=== PATIENT | male | born 1960 | race Caucasian/White ===

== ENCOUNTER 2017-11-30 11:10 | Emergency (ER) | payer OTHER ==
[~2017-11-30] VITALS: Ht 188 cm; Wt 102.1 kg
[~2017-11-30 11:10] MED LIST: ACET325 PO; Flomax0.4 MG PO; HYDMOR4 PO; HYDROCODONE/ACETAMIN; IBUP800 PO; LEVFLO500 PO; LEVO750 PO; LISI20 PO; METO50ER PO; Norco 10-325 T1 EACH PO; OMEPRAZOLE PO; OXYACE5T PO; OXYC10ER PO; SACC250C PO; TAMS.4ER PO; Zofran Odt4 MG SL
[2017-11-30] MEDS ORDERED: PANT40 PO (13:02)
[2017-11-30] MEDS ORDERED: ASPI81CH PO (13:02)
[2017-11-30] MEDS ORDERED: LEVE500 PO (13:03)
[2017-11-30] MEDS ORDERED: FERSU90EL (13:03)
[2017-11-30] MEDS ORDERED: CARV25 PO (13:03)
[2017-11-30] MEDS ORDERED: AMLO5 (13:04)
[2017-11-30] MEDS ORDERED: LOSA25 (13:04)
[2017-11-30 13:59] LABS: BASOPHILS ABSOLUTE AUTO 0.05 K/mm3 (0.00-0.23); BASOPHILS PERCENT AUTO 1 % (0-2); EOSINOPHILS ABSOLUTE AUTO 0.15 K/mm3 (0.00-0.68); EOSINOPHILS PERCENT AUTO 2 % (0-6); Hematocrit 41.8 % (37.0-53.0); Hemoglobin 13.3 g/dL (13.5-17.5); IMMATURE GRAN ABSOLUTE AUTO 0.01 K/mm3 (0.00-0.10); IMMATURE GRAN PERCENT AUTO 0 % (0-1); LYMPHOCYTES ABSOLUTE AUTO 1.85 K/mm3 (0.84-5.20); LYMPHOCYTES PERCENT AUTO 25 % (21-46); MONOCYTES ABSOLUTE AUTO 0.58 K/mm3 (0.16-1.47); MONOCYTES PERCENT AUTO 8 % (4-13); Mean Corpuscular HGB Conc 31.8 g/dL (31.5-36.5); Mean Corpuscular Volume 85 fL (80-100); Mean Platelet Volume 11.5 fL (9.1-12.4); NEUTROPHILS PERCENT AUTO 65 % (41-73); Platelet Count 242 K/mm3 (150-400); RDW Coefficient Variation 17.8 % (11.7-14.2); RDW Standard Deviation 55.8 fL (35.1-46.3); Red Blood Cell Count 4.92 M/mm3 (4.30-5.90); White Blood Cell Count 7.54 K/mm3 (4.00-11.30)
[2017-11-30 14:08] LABS: Albumin, Blood 3.7 g/dL (3.4-5.0); Albumin/Globulin Ratio 0.8 (0.8-1.8); Bilirubin, Total 0.3 mg/dL (0.1-1.0); Bun/Creatinine Ratio 13.2 (12.0-20.0); Calcium, Blood 9.1 mg/dL (8.5-10.1); Creatinine, Blood 1.36 mg/dL (0.60-1.20); Globulin, Blood 4.7 g/dL (2.2-4.0); Total Protein, Blood 8.4 g/dL (6.4-8.2)
== END 2017-11-30 15:43 | disposition home or self-care (01) ==
LOC: ER 11:10
PROVIDERS: Physician Assistant
DX: R51 Headache (principal); H53.8 Other visual disturbances; Z91.041 Radiographic dye allergy status; Z88.8 Allergy status to other drugs, medicaments and biological substances; Z79.899 Other long term (current) drug therapy; Z79.82 Long term (current) use of aspirin; Z86.73 Personal history of transient ischemic attack (TIA), and cerebral infarction without residual deficits
CPT/HCPCS: 36415; 70450; 80053; 85025; 85651; 86141; 96361; 96374; 96375; 96376; 99284-25; J0780; J1200; J1885; J7030

== ENCOUNTER → 2018-04-24 | Outpatient (CLI) | payer OTHER ==
[~2018-04-24] MED LIST changes: +AMLO5 PO; +ASPI81CH PO; +CARV25 PO; +ESCI10 PO; +FERSU90EL; +LEVE500 PO; +LOSA25 PO; +PANT40 PO
== END | disposition home or self-care (01) ==
LOC: PLD 08:09 → LAB SHORT 08:09
DX: L60.2 Onychogryphosis (principal); B35.1 Tinea unguium
CPT/HCPCS: 88305; 88312

== ENCOUNTER 2018-05-23 13:04 | Day surgery (SDC) | payer OTHER ==
[~2018-05-23] VITALS: Ht 188 cm; Wt 111.1 kg
[~2018-05-23 13:04] MED LIST changes: +ELIQUIS5 MG PO
--- NOTE | 2018-05-23 15:56 | NUR ---
05/23/18 1556 Fito Goldman USED 04/23 CC OF NS INJECTED INTO POLYP
== END 2018-05-23 15:59 | disposition home or self-care (01) ==
LOC: ORSCSDS 13:04
PROVIDERS: Student in an Organized Health Care Education/Training Program
PROC: 0DBK8ZX Excision of Ascending Colon, Via Natural or Artificial Opening Endoscopic, Diagnostic (ICD-10-PCS; principal; 2018-05-23 14:15)
PROC: 3E0H8GC Introduction of Other Therapeutic Substance into Lower GI, Via Natural or Artificial Opening Endoscopic (ICD-10-PCS; principal; 2018-05-23 14:15)
DX: D50.9 Iron deficiency anemia, unspecified (principal); D12.2 Benign neoplasm of ascending colon; K63.5 Polyp of colon; K57.30 Diverticulosis of large intestine without perforation or abscess without bleeding; R19.5 Other fecal abnormalities; Z83.71 Family history of colonic polyps; Z86.010 Personal history of colon polyps; G47.33 Obstructive sleep apnea (adult) (pediatric); I48.91 Unspecified atrial fibrillation; I69.351 Hemiplegia and hemiparesis following cerebral infarction affecting right dominant side; F32.9 Major depressive disorder, single episode, unspecified; E78.5 Hyperlipidemia, unspecified; Z79.01 Long term (current) use of anticoagulants; Z79.899 Other long term (current) drug therapy; Z87.891 Personal history of nicotine dependence
CPT/HCPCS: 88305; J7120

== ENCOUNTER 2018-12-12 12:29 | Day surgery (SDC) | payer OTHER ==
[~2018-12-12] VITALS: Ht 188 cm; Wt 117.2 kg
[~2018-12-12 12:29] MED LIST changes: +TRAZ50 PO
== END 2018-12-12 14:22 | disposition home or self-care (01) ==
LOC: ORSCSDS 12:29
PROVIDERS: Student in an Organized Health Care Education/Training Program
PROC: 0DBL8ZX Excision of Transverse Colon, Via Natural or Artificial Opening Endoscopic, Diagnostic (ICD-10-PCS; principal; 2018-12-12 13:45)
DX: D12.3 Benign neoplasm of transverse colon (principal); Z86.010 Personal history of colon polyps; Z83.71 Family history of colonic polyps; Z12.11 Encounter for screening for malignant neoplasm of colon; G47.33 Obstructive sleep apnea (adult) (pediatric); I48.91 Unspecified atrial fibrillation; I10 Essential (primary) hypertension; E66.9 Obesity, unspecified; Z86.73 Personal history of transient ischemic attack (TIA), and cerebral infarction without residual deficits; R56.9 Unspecified convulsions; Z68.33 Body mass index [BMI] 33.0-33.9, adult; Z79.899 Other long term (current) drug therapy
CPT/HCPCS: 88305; J2704; J7120

== ENCOUNTER 2023-04-20 14:25 | Inpatient (IN) | payer MEDICARE ==
[2023-04-20] VITALS (14 sets, daily range): BP systolic 113–162; BP diastolic 63–111
[~2023-04-20] VITALS: Ht 185.4 cm; Wt 135.1 kg
[2023-04-20] MEDS ORDERED: TAMSULOSIN HCL0.4 M1 PO (14:49)
[2023-04-20 14:59] LABS: BASOPHILS ABSOLUTE AUTO 0.04 K/mm3 (0.00-0.23); BASOPHILS PERCENT AUTO 0 % (0-2); EOSINOPHILS ABSOLUTE AUTO 0.03 K/mm3 (0.00-0.68); EOSINOPHILS PERCENT AUTO 0 % (0-6); Hematocrit 47.4 % (37.0-53.0); IMMATURE GRAN ABSOLUTE AUTO 0.02 K/mm3 (0.00-0.10); IMMATURE GRAN PERCENT AUTO 0 % (0-1); LYMPHOCYTES ABSOLUTE AUTO 1.27 K/mm3 (0.84-5.20); LYMPHOCYTES PERCENT AUTO 13 % (21-46); MONOCYTES ABSOLUTE AUTO 0.34 K/mm3 (0.16-1.47); MONOCYTES PERCENT AUTO 4 % (4-13); Mean Corpuscular HGB 31.9 pg (26.0-34.0); Mean Corpuscular HGB Conc 35.9 g/dL (31.5-36.5); Mean Corpuscular Volume 89 fL (80-100); Mean Platelet Volume 10.6 fL (9.1-12.4); NEUTROPHILS ABSOLUTE AUTO 7.94 K/mm3 (1.96-9.15); NEUTROPHILS PERCENT AUTO 82 % (41-73); Platelet Count 254 K/mm3 (150-400); RDW Coefficient Variation 14.2 % (11.7-14.2); RDW Standard Deviation 45.8 fL (35.1-46.3); Red Blood Cell Count 5.33 M/mm3 (4.30-5.90); White Blood Cell Count 9.64 K/mm3 (4.00-11.30)
[2023-04-20] MEDS ORDERED: NS 1,000 ML IV SCH ×2 (15:15)
[2023-04-20] MEDS ORDERED: Diltiazem HCl 5 MG / ML 5ML Vial IV ONE ×2 (15:15→16:30)
[2023-04-20 15:22] LABS: Albumin/Globulin Ratio 0.9 (0.8-1.8); Bilirubin, Total 0.7 mg/dL (0.1-1.0); Bun/Creatinine Ratio 16.2 (12.0-20.0); Calcium, Blood 9.5 mg/dL (8.5-10.1); Creatinine, Blood 1.11 mg/dL (0.60-1.20); Globulin, Blood 4.5 g/dL (2.2-4.0); Potassium, Blood 3.8 mmol/L (3.5-5.5); Total Protein, Blood 8.5 g/dL (6.4-8.2)
[2023-04-20] MEDS ORDERED: dilTIAZem HCL 125 MG in Dextrose 5% 100 ML IV SCH (16:30)
[2023-04-20] MEDS ORDERED: Nitroglycerin 0.4 MG SUBL SL PRN (17:30)
[2023-04-20] MEDS ORDERED: FLU VACC QS2023-24(6MOS UP)/PF 60 MCG/0.5 ML SYRINGE IM SCH (17:30)
[2023-04-20] MEDS ORDERED: Acetaminophen 325 MG TABLET PO PRN (17:30)
[2023-04-20 17:40] LABS: Influenza A, PCR NEGATIVE (NEGATIVE); Influenza B, PCR NEGATIVE (NEGATIVE); Resp Syncytial Virus, PCR NEGATIVE (NEGATIVE); SARS-Cov-2 (COVID-19) PCR, MMC NEGATIVE (NEGATIVE)
--- NOTE | 2023-04-20 19:03 | NUR ---
ARRIVAL TO PCU/SHIFT SUMMARY patient arrived to pcu at approx 1840. patient is alert and oriented x4. perrla. patient reports no chest pain/pressure or shortness of breath. patient came to pcu on a cardizem drip at 10. tele afib in the 120s. patient oriented to room and unit. vitals taken and are stable. plan of date is up to date at this time.
[2023-04-20 19:28] LABS: Anti-Xa UFH, PHA Monitoring 0.48 IU/mL; Prothrombin Time Results 10.5 Sec (9.7-11.5)
[2023-04-20] MEDS ORDERED: Dose Adjust by Pharmacy XX STA ×2 (19:38→21:22)
[2023-04-20] MEDS ORDERED: Heparin Sodium 5000 Units/ML 1ML MDV IV ONE (19:40)
[2023-04-20] MEDS ORDERED: Heparin Sodium,Porcine/0.5 NS 500 ML IV SCH (19:40)
[2023-04-20] MEDS ORDERED: Apixaban 5 MG Tab PO SCH (21:00)
[2023-04-20] MEDS ORDERED: Atorvastatin 40 MG Tab PO SCH (23:00)
[2023-04-21] VITALS (20 sets, daily range): BP systolic 118–182; BP diastolic 62–105
[2023-04-21 05:00] LABS: BASOPHILS ABSOLUTE AUTO 0.08 K/mm3 (0.00-0.23); BASOPHILS PERCENT AUTO 1 % (0-2); EOSINOPHILS ABSOLUTE AUTO 0.16 K/mm3 (0.00-0.68); EOSINOPHILS PERCENT AUTO 2 % (0-6); Hematocrit 42.9 % (37.0-53.0); IMMATURE GRAN ABSOLUTE AUTO 0.03 K/mm3 (0.00-0.10); IMMATURE GRAN PERCENT AUTO 0 % (0-1); LYMPHOCYTES PERCENT AUTO 38 % (21-46); MONOCYTES ABSOLUTE AUTO 0.97 K/mm3 (0.16-1.47); MONOCYTES PERCENT AUTO 10 % (4-13); Mean Corpuscular HGB 31.8 pg (26.0-34.0); Mean Corpuscular Volume 91 fL (80-100); Mean Platelet Volume 10.4 fL (9.1-12.4); NEUTROPHILS PERCENT AUTO 50 % (41-73); Platelet Count 236 K/mm3 (150-400); RDW Coefficient Variation 14.3 % (11.7-14.2); RDW Standard Deviation 47.2 fL (35.1-46.3); Red Blood Cell Count 4.71 M/mm3 (4.30-5.90); White Blood Cell Count 10.14 K/mm3 (4.00-11.30)
[2023-04-21 05:32] LABS: Magnesium, Blood 2.3 mg/dL (1.6-2.4)
[2023-04-21 05:33] LABS: Alanine Aminotransfer (ALT/SGP 41 U/L (12-78); Albumin, Blood 3.2 g/dL (3.4-5.0); Albumin/Globulin Ratio 0.9 (0.8-1.8); Alk Phos 52 U/L (50-136); Anion Gap 3 mmol/L (6-16); Aspartate Aminotrans (AST/SGOT 61 U/L (12-37); Bilirubin, Total 0.5 mg/dL (0.1-1.0); Blood Urea Nitrogen 17 mg/dL (8-24); Bun/Creatinine Ratio 14.3 (12.0-20.0); CO2, Blood 27 mmol/L (21-32); Calcium, Blood 9.2 mg/dL (8.5-10.1); Chloride, Blood 110 mmol/L (98-108); Cholesterol 215 mg/dL (50-200); Creatinine, Blood 1.19 mg/dL (0.60-1.20); Globulin, Blood 3.7 g/dL (2.2-4.0); Glomerular Filtration Rate 70 (60-); Glucose, Blood 123 mg/dL (70-99); Potassium, Blood 3.4 mmol/L (3.5-5.5); Sodium, Blood 140 mmol/L (136-145); Total Protein, Blood 6.9 g/dL (6.4-8.2); Triglycerides 209 mg/dL (30-160)
[2023-04-21] MEDS ORDERED: Dose Adjust by Pharmacy XX STA ×3 (05:38→21:07)
--- NOTE | 2023-04-21 06:13 | NUR ---
SHIFT SUMMARY PT A&O X4, COOPERATIVE WITH CARE. PT FOLLOWS COMMANDS AND MOVES ALL EXTREMITIES, STRENGTH INTACT AND EQUAL BILAT. PT DENIES CP/PRESSURE, DIZZINESS, LIGHTHEADNESS, PALPITATIONS OR N/V. PT DENIES SOB, HOWEVER THIS RN DOES NOTE MILD DYSPNEA DURING CONVERSATION, AND MORE SEVERE DYSPNEA WITH ACTIVITY. PT CONTINUES TO DENY, SPO2 MAINTAINED >94%. PT REMAINS IN AFIB WITH RATE IN 80 - 90'S AT REST, HR INCREASING TO 100 - 120'S WITH ACTIVITY. CARDIZEM GTT PLACED ON STANDBY AT 0400. HR REMAINS IN 80 - 90'S. HEPARIN GTT PER EMAR. PT AFEBRILE DURING SHIFT, REMAINS ON RA. PT ABLE TO AMBULATE TO RESTROOM WITH NURSE ASSIST/SBA FOR CORD MANAGEMENT AND SAFETY. PT'S GAIT IS STEADY AND PT ASYMPTOMATIC WHEN AMBULATING. NO BM THIS SHIFT, PT DENIES CONCERNS GI/. PT ABLE TO VERBALIZE NEEDS AND USE CALL LIGHT. PT REQUESTING SNACKS FREQUENTLY STATES "IS VERY HUNGRY". PT NPO SINCE 0000. WILL UPDATE ONCOMING RN
[2023-04-21] MEDS ORDERED: Aspirin 81 MG Chew PO SCH (09:00)
[2023-04-21] MEDS ORDERED: Metoprolol Succinate 50 MG TABCR PO SCH (09:00)
[2023-04-21] MEDS ORDERED: Losartan Potassium 25 MG Tab PO SCH (09:00)
[2023-04-21] MEDS ORDERED: Docusate Sodium/Senna 1 Tab PO PRN (10:45)
[2023-04-21] MEDS ORDERED: Sennosides 8.6 MG Tab PO PRN (12:20)
[2023-04-21] MEDS ORDERED: Digoxin 0.25 MG/ML 2ML Amp IV SCH ×2 (13:25→16:00)
--- NOTE | 2023-04-21 18:51 | NUR ---
ASSUMED CARE OF PT AT [address] CATALAN IN TO SEE PT AND STRESS TEST ORDERED. FIRST PART OF STRESS TEST COMPLETED THIS AM, WITH SECOND HALF PLANNED FOR APROX 0930 TOMORROW. PT IS TO BE NPO AFTER MN. PT OOB TO CHAIR MOST OF THE DAY. ABLE TO AMBULATE TO RESTROOM SBA APROX 1330. PT BACK TO CHAIR AND REPORTS CHEST PRESSURE, HR NOTED TO BE 140-150s. THIS RN ALLOWED PT TO SIT IN CHAIR AND TRY TO RELAX, BUT HR AND CHEST PRESSURE CONTINUED. PT WAS RESTARTED ON CARDIZEM GTT FOR RATE CONTROL. PT HAS RECEIVED FIRST DOSE OF IV DIGOXIN, WITH SECOND DOSE SCHEDULED FOR LATER THIS EVENING. CARDIZEM GTT TO CONTINUE UNTIL HR IS CONTROLLED. PT NO LONGER REPORTED CHEST PRESSURE ONCE HR HAD COME DOWN TO 90-100 ON CARDIZEM GTT. SEE DOCUMENTED VS AND ASSESSMENT. NO OTHER ACUTE EVENTS T/O THE DAY. PT HAS REMAINED ON HEPARIN GTT PER MD ORDERS. PT IS ABLE TO COMMUNICATE NEEDS AND USES CALL LIGHT EFFECTIVELY. BED LOCKED AND IN LOWEST POSITION. CALL LIGHT IN REACH AT THIS TIME. WILL CONTINUE TO MONITOR AND GIVE REPORT TO NOC SHIFT RN.
[2023-04-22] VITALS (22 sets, daily range): BP systolic 116–189; BP diastolic 75–119
[2023-04-22] MEDS ORDERED: Metoprolol Tartrate 50 MG Tab PO ONE (01:00)
[2023-04-22 03:27] LABS: Hematocrit 48.2 % (37.0-53.0); Hemoglobin 16.6 g/dL (13.5-17.5); Mean Platelet Volume 10.5 fL (9.1-12.4); Platelet Count 252 K/mm3 (150-400)
[2023-04-22] MEDS ORDERED: Dose Adjust by Pharmacy XX STA ×2 (04:47→11:44)
[2023-04-22] MEDS ORDERED: Digoxin 0.125 MG Tab PO SCH (06:00)
--- NOTE | 2023-04-22 06:42 | NUR ---
SHIFT SUMMARY PT A&O X4, NO ACUTE NEURO CHANGES DURING SHIFT. PT REMAINS IN AFIB WITH RATE IN 70 - 80'S, HR INCREASES TO 100 - 1 TEENS WITH EXERTION OR ACTIVITY. PT AFEBRILE, REMAINS ON RA WITH SPO2 >94%. PT DENIES CP/PRESSURE, DIZZINESS, PALPITATIONS, SOB, N/V. THIS RN DOES NOTE CONTINUED MILD DYSPNEA HOWEVER IS IMPROVING. BLOOD PRESSURES LABILE; RANGING FROM 130 - 180'S. THIS RN NOTIFIED PROVIDER AFTER BLOOD PRESSURES CONTINUE TO TREND UP, ORDERS FOR ONE TIME DOSE OF METOPROLOL TARTRATE 50 MG PO. MEDICATION ADMINISTERED; BLOOD PRESSURES IMPROVING SOME. PT STATES "HE IS ALWAYS HIGH AND THIS HIGH". EDUCATION PROVIDED. PT VERBALIZED UNDERSTANDING OF INFORMATION. HEPARIN INFUSING PER EMAR. KHAN ON STANDBY AT BEDSIDE SINCE 0400. PT RESTED WELL THROUGH THE NIGHT. USES CALL LIGHT APPROPRIATELY. PT NPO SINCE 0000 FOR STRESS TEST THIS AM. WILL UPDATE ONCOMING RN
[2023-04-22] MEDS ORDERED: Caffeine Citrated 60 MG/3 ML Vial ONE (09:17)
[2023-04-22] MEDS ORDERED: Regadenoson 0.4 MG/5 ML SYRINGE ONE (09:17)
[2023-04-22] MEDS ORDERED: HYDROcodone 5-APAP 325 TAB PO PRN (10:35)
[2023-04-22] MEDS ORDERED: Metoprolol Tartrate 1 MG/ML 5 ML VIAL IV ONE (13:55)
--- NOTE | 2023-04-22 18:52 | NUR ---
ASSUMED CARE OF PT AT 0700 THIS AM. PT REPORTS NO CHEST PAIN OR PRESSURE T/O THE DAY. ECHO AND STRESS TEST COMPLETED. HEPARIN GTT CONTINUES TO INFUSE PER MD ORDERS. ROUNDED WITH DR WELDON AND DISCUSSED HR CONTROL, METOPROL DOSAGE INCREASED. PER FILBERT GROWER, PT IS TO BE NPO AFTER MIDNIGHT FOR POSSIBLE PROCEDURE. SEE DOCUMENTED VS AND ASSESSMENT. NO ACUTE EVENTS THIS SHFT. PT IS ABLE TO MAKE NEEDS KNOWN, USES ALL LIGHT APPROPRIATELY. BED LOCKED AND IN LOWEST POSITION, CALL LIGHT IN REACH. WILL CONTINUE TO MONITOR AND GIVE REPORT TO NOC SHIFT RN.
[2023-04-22] MEDS ORDERED: Metoprolol Succinate 50 MG TABCR PO SCH (21:00)
--- NOTE | 2023-04-22 22:17 | NUR ---
ASSUMPTION OF CARE NOTE THIS RN ASSUMED CARE OF PT AT 1900, REPORT FROM MILENA ANGULO. PT A&O X4, COOPERATIVE WITH CARE. VSS; 149/119, AFIB WITH RATE IN 90 - 100'S. HR INCREASING TO 1 TEENS - 120'S WITH ACTIVITY. PT ASYMPTOMATIC, EXCEPT MILD DYSPNEA WHICH IS IMPROVING FROM ADMIT. PT DENIES PAIN, DENIES ISSUES GI/. PT AMBULATING TO RESTROOM INDEPENDENTLY, ONLY NEEDING MINIMAL ASSISTANCE FOR CORD MANAGEMENT. HEPARIN INFUSING PER EMAR. CARDIZEM ON STANDBY AT BEDSIDE. PT DENIES NEEDS, CALL LIGHT IN REACH.
[2023-04-23] VITALS: BP 133/91
[2023-04-23] MEDS ORDERED: Clarify Drug Order XX ONE ×2 (00:40→07:00)
[2023-04-23 04:30] VITALS: BP 161/107
--- NOTE | 2023-04-23 06:09 | NUR ---
SHIFT SUMMARY PT REMAINS A&O X4. VSS; REMAINS IN AFIB WITH RATE IN 80 - 100'S. SBP 130 - 160, DBP 90 - 1 TEENS. AFEBRILE, REMAINS ON RA SPO2 >94%. NO EVENTS OF CP/PRESSURE, DIZZINESS, PALPITATIONS. MILD DYSPNEA NOTED WITH ACTIVITY BUT CONTINUES TO IMPROVE. PT ALSO AGREES IT IS IMPROVING. NO ACUTE CHANGES OVERNIGHT. HEPARIN PER EMAR. PT AMBULATING AND USING RESTROOM INDEPENDENTLY, WITH GOOD OUTPUT. PT DENIES ISSUES OR CONCERNS. PT RESTED VERY WELL THIS SHIFT. CALL LIGHT IN REACH. WILL UPDATE ONCOMING RN
[2023-04-23 06:23] LABS: Hematocrit 46.3 % (37.0-53.0); Hemoglobin 16.2 g/dL (13.5-17.5); Mean Platelet Volume 10.5 fL (9.1-12.4); Platelet Count 245 K/mm3 (150-400)
[2023-04-23 07:48] VITALS: BP 167/95
[2023-04-23] MEDS ORDERED: Labetalol HCL 100 MG TAB PO SCH (09:00)
[2023-04-23] MEDS ORDERED: Losartan Potassium 50 MG Tab PO SCH (09:00)
[2023-04-23 09:01] LABS: Anion Gap 2 mmol/L (6-16); Blood Urea Nitrogen 15 mg/dL (8-24); Bun/Creatinine Ratio 12.4 (12.0-20.0); CHOL/HDL RATIO 4.2; CO2, Blood 29 mmol/L (21-32); Chloride, Blood 108 mmol/L (98-108); Cholesterol 187 mg/dL (50-200); Creatinine, Blood 1.21 mg/dL (0.60-1.20); Glomerular Filtration Rate 68 (60-); Glucose, Blood 120 mg/dL (70-99); HDL Cholesterol 45 mg/dL (>39); LDL/HDL RATIO 2.3; Low Density Lipoprotein Chol 103 mg/dL (0-110); Potassium, Blood 3.8 mmol/L (3.5-5.5); Sodium, Blood 139 mmol/L (136-145); Triglycerides 193 mg/dL (30-160); Very Low Density Lipoprot Chol 38 mg/dL (6-32)
[2023-04-23] MEDS ORDERED: ASPI81CH PO (11:20)
[2023-04-23] MEDS ORDERED: LABE200 PO (11:21)
[2023-04-23] MEDS ORDERED: DIGOX125 MC1 PO (11:21)
[2023-04-23] MEDS ORDERED: ATOR80 PO (11:21)
[2023-04-23 11:26] VITALS: BP 114/84
--- NOTE | 2023-04-23 12:38 | NUR ---
DISCHARGE: PT MET W/CARE TECHNICIAN AT BEDSIDE, MADE INFORMED DECISION TO OPT FOR MEDICAL MANAGEMENT AND F/UP OUTPT. PT MEDICATED PER EMAR, HAS BEEN CLEARED FOR DISCHARGE HOME. ALL IV ACCESS HAS BEEN DC'd WNL. PT DRESSES SELF. DC PAPERWORK AND INSTRUCTIONS HAVE BEEN PROVIDED, PT V/U, ALL QUESTIONS HAVE BEEN ANSWERED. PT PENDING DC HOME, WAITING FOR HIS FAMILY TO PICK HIM UP.
== END 2023-04-23 14:18 | disposition home or self-care (01) | DRG 282 ==
LOC: ER 14:25 → PCU 14:26
PROVIDERS: Emergency Medicine; Internal Medicine; Student in an Organized Health Care Education/Training Program; ADMIT Student in an Organized Health Care Education/Training Program
DX: I48.91 Unspecified atrial fibrillation (principal); I21.A1 Myocardial infarction type 2; I10 Essential (primary) hypertension; E78.5 Hyperlipidemia, unspecified; F10.90 Alcohol use, unspecified, uncomplicated; Z87.442 Personal history of urinary calculi; N40.0 Benign prostatic hyperplasia without lower urinary tract symptoms; Z11.52 Encounter for screening for COVID-19; Z88.0 Allergy status to penicillin; Z91.041 Radiographic dye allergy status; Z91.018 Allergy to other foods; E66.9 Obesity, unspecified; Z87.19 Personal history of other diseases of the digestive system; Z98.890 Other specified postprocedural states; Z79.01 Long term (current) use of anticoagulants; Z79.899 Other long term (current) drug therapy; Z87.891 Personal history of nicotine dependence; Z68.38 Body mass index [BMI] 38.0-38.9, adult
CPT/HCPCS: 0241U; 36415; 71045; 78452; 80048; 80053; 80061; 82465; 83036; 83735; 83880; 84443; 84478; 84484; 85014; 85018; 85025; 85049; 85520; 85610; 85730; 93005; 93010; 93017; 93306; 96361; 96365; 96366; 96375; 96376; 99285-25; A9270; A9500; G0378; J0706; J1160; J1644; J2785; J7030